=== PATIENT | female | born 1995 | race Caucasian/White ===

== ENCOUNTER 2016-03-20 18:35 | Emergency (ER) | payer MEDICAID ==
[2016-03-20] MEDS ORDERED: CEFTRIAXONE 1 GM VIAL ONE (20:42)
[2016-03-20] MEDS ORDERED: SODIUM CHLORIDE 0.9% 100 ML IV ONE (20:42)
[2016-03-20] MEDS ORDERED: SODIUM CHLORIDE 0.9% 1,000 ML ONE (20:42)
[2016-03-20] MEDS ORDERED: MORPHINE 4 MG/ML SYR ONE (21:07)
[2016-03-20] MEDS ORDERED: ONDANSETRON 4 MG VIAL ONE (21:07)
== END 2016-03-20 22:43 | disposition home or self-care (01) ==
LOC: ER 18:35
DX: N10 Acute pyelonephritis (principal)
CPT/HCPCS: 36415; 74176; 80053; 81001; 84703; 85025; 87077; 87088; 87186; 96361; 96365; 96375